=== PATIENT | female | born 1970 | race Asian ===

== ENCOUNTER 2019-05-16 14:24 | Outpatient (CLI) | payer BC, SELFPAY ==
--- NOTE | ~2019-05-16 | US_ITS ---
EXAMINATION: US thyroid DATE: 05/16/2019 15:09 INDICATION: Thyrotoxicosis, unspecified without thyrotoxic crisis. TECHNIQUE: Multiple ultrasound images of the thyroid were obtained. COMPARISON: None. FINDINGS: The right thyroid lobe measures 5.1 x 1.3 x 1.4 cm. The left thyroid lobe measures 4.3 x 1.0 x 1.4 c m. In the left thyroid lobe, there is a 1.8 cm solid, hypoechoic, [id number] nodule with ill-de fined margin without echogenic foci (TI-RADS TR4). IMPRESSION: 1. Left thyroid nodule. Ultrasound-guided fine-needle aspiration is recommended. Reviewed, dictated and finalized at location A. ATOR TECHNICIAN IMPRESSION: 1. Left thyroid nodule. Ultrasound-guided fine-needle aspiration is recommended .
--- NOTE | ~2019-05-16 | NM_ITS ---
EXAMINATION: NM thyroid scan w uptake DATE: 05/17/2019 16:24 INDICATION: Thyrotoxicosis COMPARISON: Ultrasound dated 05/16/2019 TECHNIQUE: 431 microcuries [id number] was administered orally in capsule form. Scintigraphic images of th e thyroid gland were obtained at 24 hours. Thyroid uptake was calculated by the technologist. FINDINGS: The thyroid uptake is 25.5% (normal 10-30%), with the right lobe measuring 13.8% uptake and the left 12.5%. There is no focal area of decreased or increased activity to suggest hypofunctioning or hyperf unctioning nodule. IMPRESSION: 1. Normal thyroid scintigraphy and 24-hour iodine uptake. Reviewed, dictated and finalized at location A. ENT ACCESS SPECIALIST
== END 2019-05-16 14:25 | disposition home or self-care (01) ==
LOC: ANHIMG 14:26
PROVIDERS: PCP Internal Medicine; Visit Provider Internal Medicine
DX: E05.90 Thyrotoxicosis, unspecified without thyrotoxic crisis or storm (principal); E04.1 Nontoxic single thyroid nodule
CPT/HCPCS: 76536; 78014; A9516

== ENCOUNTER 2019-10-22 16:37 | Outpatient (CLI) | payer BC, SELFPAY ==
--- NOTE | ~2019-10-22 | MM_ITS ---
EXAMINATION: MM screening olvin BI w sunshine HISTORY: Screening TECHNIQUE: Craniocaudal and mediolateral oblique 3-D tomosynthesis images were obtained and synthetic 2-D images were generated. CAD analysis was submitted and interpreted. COMPARISON: Comparison to multiple prior studies sequentially, with oldest reviewed study dated 10/02. BREAST PARENCHYMAL COMPOSITION: The breasts are heterogeneously dense, which may obscure small masses . FINDINGS: There is no evidence of suspicious mass, calcification, or architectural distortion to sugg est malignancy in either breast. There has been no suspicious interval change. IMPRESSION: 1. No mammographic evidence of malignancy. 2. Recommend routine screening mammography in one year. BI-RADS Category 1: Negative Reviewed, dictated and finalized at location A.
== END 2019-10-22 16:38 | disposition home or self-care (01) ==
LOC: ANHIMG 16:38
PROVIDERS: PCP Internal Medicine; Visit Provider Internal Medicine
DX: Z12.31 Encounter for screening mammogram for malignant neoplasm of breast (principal)
CPT/HCPCS: 77063; 77067

== ENCOUNTER 2020-06-02 11:18 | Outpatient (CLI) | payer BC, SELFPAY | END 2020-06-02 11:19 | disposition home or self-care (01) | LOC: ANHCOVIDVC 11:18 | PROVIDERS: PCP Internal Medicine | DX: Z23 Encounter for immunization (principal) | CPT/HCPCS: 0001A; 91300 ==

== ENCOUNTER 2020-06-23 11:18 | Outpatient (CLI) | payer BC, SELFPAY | END 2020-06-23 11:19 | disposition home or self-care (01) | LOC: ANHCOVIDVC 11:18 | PROVIDERS: PCP Internal Medicine | DX: Z23 Encounter for immunization (principal) | CPT/HCPCS: 0002A; 91300 ==

== ENCOUNTER 2020-12-03 16:51 | Outpatient (CLI) | payer BC, SELFPAY ==
--- NOTE | ~2020-12-03 | MM_ITS ---
EXAMINATION: MM screening olvin BI w sunshine HISTORY: Screening TECHNIQUE: Craniocaudal and mediolateral oblique 3-D tomosynthesis images were obtained and synthetic 2-D images were generated. CAD analysis was submitted and interpreted. COMPARISON: Comparison to multiple prior studies sequentially, with oldest reviewed study dated 10/02. BREAST PARENCHYMAL COMPOSITION: The breasts are extremely dense, which lowers the sensitivity of mamm ography. FINDINGS: There is no evidence of suspicious mass, calcification, or architectural distortion to sugg est malignancy in either breast. There has been no suspicious interval change. IMPRESSION: 1. No mammographic evidence of malignancy. 2. Recommend routine screening mammography in one year. BI-RADS Category 1: Negative Reviewed, dictated and finalized at location A.
== END 2020-12-03 16:52 | disposition home or self-care (01) ==
LOC: ANHIMG 16:53
PROVIDERS: PCP Internal Medicine; Visit Provider Obstetrics & Gynecology Gynecology
DX: Z12.31 Encounter for screening mammogram for malignant neoplasm of breast (principal)
CPT/HCPCS: 77063; 77067

== ENCOUNTER 2021-07-19 16:51 | Outpatient (CLI) | payer BC, SELFPAY ==
--- NOTE | ~2021-07-19 | US_ITS ---
EXAMINATION: US venous doppler [facility] DATE: 07/19/2021 17:47 INDICATION: PAIN IN LEFT LEG TECHNIQUE: Grayscale images without and with compression and Doppler images of the bilateral lower ex tremity veins were obtained. COMPARISON: None. FINDINGS: The right common femoral vein, profunda (deep) femoral vein, femoral vein, popliteal vein, peroneal v ein, posterior tibial veins, and greater saphenous vein are patent. The left common femoral vein, profunda femoral vein, femoral vein, popliteal vein, peroneal vein, pos terior tibial veins, and greater saphenous vein are patent. IMPRESSION: 1. Patent bilateral lower extremity veins. No evidence of deep venous thrombosis. Reviewed, dictated and finalized at location K. IMPRESSION: 1. Patent bilateral lower extremity veins. No evidence of deep venous thrombos is.
== END 2021-07-19 16:52 | disposition home or self-care (01) ==
LOC: ANHIMG 16:52
PROVIDERS: PCP Family Medicine; Visit Provider Nurse Practitioner Family
DX: M79.662 Pain in left lower leg (principal)
CPT/HCPCS: 93970

== ENCOUNTER 2021-12-02 17:03 | Emergency (ER) | payer BC, SELFPAY ==
[2021-12-02 17:19] VITALS: BP 133/73; PULSE 95; RESP 16; TEMP 39; O2SAT 99
--- NOTE | 2021-12-02 17:53 | ED.URI ---
HPI - URI/Sore Throat General Chief Complaint: Upper Respiratory Infection Stated Complaint: Sore throat, fever, chills Time Seen by Provider: 12/02/21 17:53 Source: patient and RN notes reviewed Mode of arrival: ambulatory Limitations: no limitations History of Present Illness HPI Narrative: 51 y/o female presented for c/o headache, body aches, sinus pressure/congestion, cough, fever/chills. Onset 2 days. Negative covid test at home yesterday. Taking over the counter cough/cold medications for symptoms. Denies sick contacts. MD elicited complaint: cough Related Data Home Medications Medication Instructions Recorded Confirmed aspirin 81 mg tablet,delayed 81 mg PO DAILY 07/13/21 12/02/21 release (Adult Aspirin Regimen) coenzyme Q10 10 mg capsule (Co 10 mg PO ONCE 07/13/21 12/02/21 Q-10) lutein 25 mg-zeaxanthin 5 mg 1 cap PO .QD 07/13/21 12/02/21 capsule (Ocuvite Lutein) multivitamin (One-A-Day Essential 1 tablet PO DAILY 07/13/21 12/02/21 tablet) cholecalciferol (vitamin D3) 50 50 mcg PO DAILY 07/19/21 12/02/21 mcg (2,000 unit) capsule Allergies Allergy/AdvReac Type Severity Reaction Status Date / Time SEAFOOD Allergy Intermediate RASH WHEN Uncoded 12/02/21 17:31 ATE ONCE Molds and Smuts Allergy Mild CLOGGED Uncoded 12/02/21 17:31 SINUSES Review of Systems Review of Systems: CONSTITUTIONAL: Endorses malaise, chills, sweats, fever EYES: Denies visual changes, redness, or discharge ENT: Reports rhinorrhea, congestion, sinus pain, otalgia, sore throat CARDIOVASCULAR: Denies chest pain, palpitations, edema RESPIRATORY: Reports cough, post nasal drainage. Denies dyspnea GASTROINTESTINAL: Denies abdominal pain, nausea, vomiting, diarrhea SKIN: Denies rash or itching MUSCULOSKELETAL: Endorses myalgia PMFSH Past Medical History Medical History BMI 24.0-24.9, adult HLD (hyperlipidemia) HTN (hypertension) Leg pain, bilateral Sleep apnea in adult Well woman exam Family History Family History Mother Hypertension Cerebrovascular accident Sibling Hypertension Social History Social History Smoking status: Never smoker Alcohol intake: never Substance use: never Additional occupation/education comments: [employer] Gender identity (if verbalized by the patient): Female Exam Narrative: GENERAL: Ill-appearing, nontoxic EYES: conjunctivae clear ENT: Mucous membranes moist. TM pearly mack with dull light reflex bilaterally; no tragal tenderness. Oropharynx erythematous without lesions or exudate, no drooling, no hoarseness, no trismus, uvula midline. NECK: Supple. No lymphadenopathy CHEST: Clear to auscultation, breath sounds equal. HEART: Regular rate and rhythm. SKIN: Warm, dry, no rash. NEURO: Alert and oriented x3. PSYCH: Normal mood and affect Course Course Emergency Course: Patient is aware of diagnosis, understands and agrees to treatment plan. Anticipatory guidance given. Patient agrees to follow-up as directed and is aware of reasons to seek care at the emergency department. Portions of this record may have been created with voice recognition software Level of Care: Express Care Visit Vital Signs Vital signs: Vital Signs Temperature 102.2 F H 12/02/21 17:19 Pulse Rate 95 12/02/21 17:19 Respiratory Rate 16 12/02/21 17:19 Blood Pressure 133/73 12/02/21 17:19 Pulse Oximetry 99 12/02/21 17:19 Oxygen Delivery Room Air 12/02/21 17:19 Temperature 102.2 F H 12/02/21 17:19 Pulse Rate 95 12/02/21 17:19 Respiratory Rate 16 12/02/21 17:19 Blood Pressure 133/73 12/02/21 17:19 Pulse Oximetry 99 12/02/21 17:19 Oxygen Delivery Room Air 12/02/21 17:19 reviewed MDM - URI/Sore Throat MDM Narrative Medical decision making narrative: Covid and influenza po
== END 2021-12-02 18:16 | disposition home or self-care (01) ==
PROVIDERS: Emergency Provider Nurse Practitioner Family; PCP Family Medicine
DX: U07.1 COVID-19 (principal); J10.1 Influenza due to other identified influenza virus with other respiratory manifestations; E78.5 Hyperlipidemia, unspecified; I10 Essential (primary) hypertension; G47.30 Sleep apnea, unspecified; Z79.82 Long term (current) use of aspirin
CPT/HCPCS: 87426; 87804; 87880; 99213; C9803; G0463

== ENCOUNTER 2021-12-28 09:12 | Outpatient (CLI) | payer BC, SELFPAY ==
--- NOTE | ~2021-12-28 | XR_ITS ---
EXAMINATION: XR chest 2V DATE: 12/28/2021 09:39 INDICATION: Cough, unspecified. TECHNIQUE: Frontal and lateral views of the chest were obtained. COMPARISON: None. FINDINGS: The chest demonstrates clear lungs without pneumonia, pleural effusion, or pneumothorax. Th e heart size is normal. IMPRESSION: 1. No acute cardiopulmonary disease. Reviewed, dictated and finalized at location A.
== END 2021-12-28 09:13 | disposition home or self-care (01) ==
PROVIDERS: PCP Family Medicine; Visit Provider Nurse Practitioner Family
DX: R05.9 Cough, unspecified (principal)
CPT/HCPCS: 71046

== ENCOUNTER 2022-01-01 09:52 | Outpatient (CLI) | payer BC, SELFPAY ==
--- NOTE | ~2022-01-01 | MM_ITS ---
EXAMINATION: MM screening olvin BI w sunshine HISTORY: Screening TECHNIQUE: Craniocaudal and mediolateral oblique 3-D tomosynthesis images were obtained and synthetic 2-D images were generated. CAD analysis was submitted and interpreted. COMPARISON: Comparison to multiple prior studies sequentially, with oldest reviewed study dated 12/18. BREAST PARENCHYMAL COMPOSITION: The breasts are extremely dense, which lowers the sensitivity of mamm ography FINDINGS: There is no evidence of suspicious mass, calcification, or architectural distortion to sugg est malignancy in either breast. There has been no suspicious interval change. IMPRESSION: 1. No mammographic evidence of malignancy. 2. Recommend routine screening mammography in one year. BI-RADS Category 1: Negative Reviewed, dictated and finalized at location A.
== END 2022-01-01 09:53 | disposition home or self-care (01) ==
PROVIDERS: PCP Family Medicine; Visit Provider Obstetrics & Gynecology Gynecology
DX: Z12.31 Encounter for screening mammogram for malignant neoplasm of breast (principal)
CPT/HCPCS: 77063; 77067

== ENCOUNTER 2022-11-10 15:38 | Emergency (ER) | payer BC, SELFPAY ==
--- NOTE | 2022-11-10 15:40 | ED.URI ---
HPI - URI/Sore Throat General Chief Complaint: Upper Respiratory Infection Stated Complaint: Sore Throat Time Seen by Provider: 11/10/22 15:40 Source: patient Mode of arrival: ambulatory Limitations: no limitations History of Present Illness HPI Narrative: Patient is a 52-year-old female who presents with sore throat, sinus pressure, fatigue and cough since yesterday. Significant other diagnosed with COVID today. Has been taking Robitussin with no relief. Denies any congestion, headache, fever, chills, nausea, vomiting, diarrhea, shortness of breath. Related Data Home Medications Medication Instructions Recorded Confirmed aspirin 81 mg tablet,delayed 81 mg PO DAILY 07/13/21 11/10/22 release (Adult Aspirin Regimen) coenzyme Q10 10 mg capsule (Co 10 mg PO ONCE 07/13/21 11/10/22 Q-10) lutein 25 mg-zeaxanthin 5 mg 1 cap PO .QD 07/13/21 11/10/22 capsule (Ocuvite Lutein) multivitamin (One-A-Day Essential 1 tablet PO DAILY 07/13/21 11/10/22 tablet) cholecalciferol (vitamin D3) 50 50 mcg PO DAILY 07/19/21 11/10/22 mcg (2,000 unit) capsule biotin 5 mg capsule 5 mg PO DAILY 08/01/22 11/10/22 pantoprazole 20 mg tablet,delayed 20 mg PO QAM 11/10/22 11/10/22 release (Protonix) Allergies Allergy/AdvReac Type Severity Reaction Status Date / Time SEAFOOD Allergy Intermediate RASH WHEN Uncoded 08/01/22 16:54 ATE ONCE Molds and Smuts Allergy Mild CLOGGED Uncoded 08/01/22 16:54 SINUSES Review of Systems Review of Systems: All systems reviewed & are unremarkable except as noted in HPI and below Constitutional: Constitutional: Denies body ache(s), Denies chills, Denies fatigue, Denies fever(s), Denies headache(s), Denies malaise and Denies weakness Eyes: Eyes: Denies blurry vision, Denies itchy eyes and Denies loss of vision ENT: Denies otalgia, Denies headache(s), Reports nasal congestion, Denies sinus pain, Reports sinus pressure and Reports sore throat Cardiovascular: Cardiovascular: Denies chest pain, Denies irregular heart rhythm and Denies dyspnea Respiratory: Respiratory: Reports cough and Denies dyspnea Gastrointestinal: Gastrointestinal: Denies abdominal pain, Denies diarrhea, Denies nausea and Denies vomiting Musculoskeletal: Musculoskeletal: Denies back pain, Denies myalgias and Denies arthralgias Integumentary/Breasts: Skin/Breast: Denies pruritus and Denies rash Neurologic: Denies headache(s), Denies loss of vision and Denies weakness Psychiatric: Psychiatric: Reports no additional psychiatric complaints Endocrine: Endocrine: Denies fatigue Allergic/Immunologic: Allergic/Immunologic: Denies itchy eyes PMFSH Past Medical History Medical History Adult BMI 25.0-25.9 kg/sq m BMI 24.0-24.9, adult HLD (hyperlipidemia) HTN (hypertension) Leg pain, bilateral Sleep apnea in adult Well woman exam Family History Family History Mother Hypertension Cerebrovascular accident Sibling Hypertension Father Acute myocardial infarction Social History Social History Smoking status: Never smoker Second hand tobacco smoke exposure: No Alcohol intake: never Substance use: never Substance use type: does not use Lack of Transportation: No Lack of Food: Never True Current Housing: Decline to Answer Concerned About Future Housing: No Difficulty Paying Gas/Electric Bills: No Difficulty Paying for Meds: No Currently Unemployed: No Education: Associate Degree Difficulty w/ Childcare or Family Care: No Living arrangements: with family Occupation/Education: occupation Additional occupation/education comments: [employer] Gender identity (if verbalized by the patient): Female Comments At time of signature, agree with nursing past medical, surgical, social and family history. There is no relevant famil
[2022-11-10 15:49] VITALS: BP 125/78; PULSE 88; RESP 16; TEMP 37.2; O2SAT 98
== END 2022-11-10 16:28 | disposition home or self-care (01) ==
PROVIDERS: Emergency Provider Nurse Practitioner Family; PCP Family Medicine
DX: U07.1 COVID-19 (principal); E78.5 Hyperlipidemia, unspecified; I10 Essential (primary) hypertension; Z79.82 Long term (current) use of aspirin
CPT/HCPCS: 87426; 99213; C9803; G0463

== ENCOUNTER 2023-05-25 14:45 | Outpatient (CLI) | payer BC, SELFPAY ==
--- NOTE | ~2023-05-25 | MM_ITS ---
EXAMINATION: MM screening olvin BI w sunshine HISTORY: Screening mammogram TECHNIQUE: Craniocaudal and mediolateral oblique 3-D tomosynthesis images were obtained and synthetic 2-D images were generated. CAD analysis was submitted and interpreted. COMPARISON: 01/01/2022, 12/03/2020, 10/22/2019 bilateral screening mammogram examinations BREAST PARENCHYMAL COMPOSITION: The breasts are extremely dense, which lowers the sensitivity of mamm ography. FINDINGS: There is no evidence of suspicious mass, calcification, or architectural distortion to sugg est malignancy in either breast. There has been no suspicious interval change. IMPRESSION: 1. No mammographic evidence of malignancy. 2. Recommend routine screening mammography in one year. BI-RADS Category 1: Negative Reviewed, dictated and finalized at location A. ICAL DATA ASSOCIATE
== END 2023-05-25 14:46 ==
PROVIDERS: PCP Obstetrics & Gynecology Gynecology; Visit Provider Obstetrics & Gynecology Gynecology
DX: Z12.31 Encounter for screening mammogram for malignant neoplasm of breast (principal)
CPT/HCPCS: 77063; 77067

== ENCOUNTER 2023-09-27 10:52 | Outpatient (CLI) | payer BC, SELFPAY ==
--- NOTE | ~2023-09-27 | XR_ITS ---
3 VIEWS LUMBAR SPINE Ordering provider: PORTER Reddy History: . S39.92XA - Unspecified injury of lower back, initial enco... . Comparison: None. FINDINGS: VERTEBRAL BODIES: No visible fracture or subluxation. DISK SPACES: Normal. Multilevel facet joint disease in the lower lumbar area. SOFT TISSUES: Normal. IMPRESSION: No acute osseous abnormality lumbar spine. Reviewed, dictated and finalized at location A.
== END 2023-09-27 10:53 | disposition home or self-care (01) ==
LOC: ANHIMG 10:57
PROVIDERS: PCP Family Medicine; Visit Provider Nurse Practitioner Family
DX: S39.92XA Unspecified injury of lower back, initial encounter (principal); X58.XXXA Exposure to other specified factors, initial encounter
CPT/HCPCS: 72114

== ENCOUNTER 2024-05-27 16:37 | Outpatient (CLI) | payer BC, SELFPAY ==
--- NOTE | ~2024-05-27 | MM_ITS ---
EXAMINATION: MM screening olvin BI w sunshine HISTORY: Screening mammogram TECHNIQUE: Craniocaudal and mediolateral oblique 3-D tomosynthesis images were obtained and synthetic 2-D images were generated. CAD analysis was submitted and interpreted. COMPARISON: 05/25/2023, 01/01/2022, 12/03/2020, 10/22/2019 BREAST PARENCHYMAL COMPOSITION:Dense: The breasts are heterogeneously dense, which may obscure small masses. FINDINGS: No suspicious mass, calcification, or architectural distortion are identified in either judith ast to suggest malignancy. There has been no suspicious interval change. IMPRESSION: No mammographic evidence of malignancy. Recommend routine screening mammography in one year. BI-RADS Category 1: Negative Reviewed, dictated and finalized at location .
== END 2024-05-27 16:38 | disposition home or self-care (01) ==
PROVIDERS: PCP Nurse Practitioner Women's Health; Visit Provider Nurse Practitioner Women's Health
DX: Z12.31 Encounter for screening mammogram for malignant neoplasm of breast (principal)
CPT/HCPCS: 77063; 77067